=== PATIENT | female | born 1990 | race Two or more races ===

== ENCOUNTER 2018-12-26 01:33 | Emergency (ER) | payer OTHER ==
--- NOTE | 2018-12-26 01:58 | PDOC ---
History of Present Illness - General Chief Complaint: Pain Stated Complaint: BREASAT PAIN Time Seen by Provider: 12/26/18 01:53 - History of Present Illness Initial Comments: 12/26/18 03:37 28 year old no pmhx 2 weeks of bilateral breast burning PE no external massess, rash, or lesions fibrocystic changes in the breasts no tenderness to palpation Past History - Past Medical History Allergies/Adverse Reactions: Allergies Allergy/AdvReac Type Severity Reaction Status Date / Time No Known Allergies Allergy Verified 12/26/18 01:57 Home Medications: Ambulatory Orders NK [No Known Home Medication] 12/26/18 *DC/Admit/Observation/Transfer Diagnosis at time of Disposition: Breast pain - Discharge Dispostion Disposition: HOME Condition at time of disposition: Stable Decision to Admit order: No - Referrals Referrals: Herlinda Elizabeth MD [Primary Care Provider] - - Patient Instructions Printed Discharge Instructions: DI for Breast Pain (Mastalgia) Additional Instructions: You were seen in the ED for breast pain. Your evaluation and workup here was unremarkable Please follow up with your Primary Care within 1 week for further care. Return to the ED if you experience chest pain, fevers, redness or rashes - Post Discharge Activity Forms/Work/School Notes: Back to Work
[2018-12-26 02:09] VITALS: BP 143/92; PULSE 89; TEMP 98.1; BMI 30.9
--- NOTE | 2018-12-26 03:54 | PDOC ---
Attending Attestation - Resident Resident Name: Shauna Dick - ED Attending Attestation I have performed the following: I have examined & evaluated the patient, The case was reviewed & discussed with the resident, I agree w/resident's findings & plan, Exceptions are as noted - HPI HPI: 12/26/18 03:52 28 F with no PMH presents to ED with bilateral breast pain. Pt states that over the past 2 weeks, she has had intermittent episodes of bilateral breast pain. Pt reports pain in the lower portion of both breasts. Denies redness/swelling. Denies drainage. Denies any tenderness. LMP was today. Denies CP/SOB. Pt currently denies any pain. - Physicial Exam PE: 12/26/18 03:53 "GENERAL: Awake, alert, and fully oriented, in no acute distress. HEAD: No signs of trauma EYES: PERRLA, EOMI, sclera anicteric, conjunctiva clear ENT: Auricles normal inspection, hearing grossly normal, nares patent, oropharynx clear without exudates. Moist mucosa NECK: Nontender, no stepoffs, Normal ROM, supple, no lymphadenopathy, JVD, or masses LUNGS: Breath sounds equal, clear to auscultation bilaterally. No wheezes, and no crackles HEART: Regular rate and rhythm, normal S1 and S2, no murmurs, rubs or gallops ABDOMEN: Soft, nontender, normoactive bowel sounds. No guarding, no rebound. No masses EXTREMITIES: Normal range of motion, no edema. No clubbing or cyanosis. No cords, erythema, or tenderness NEUROLOGICAL: Cranial nerves II through XII intact. 5/5 strength and sensation in all extremities, Normal speech, normal gait, normal cerebellar function SKIN: Warm, Dry, normal turgor, no rashes or lesions noted. - Medical Decision Making 12/26/18 03:53 28 F with intermittent bilateral breast pain. Currently asymptomatic. Normal breast exam. - UPT - F/u studio artist Pt is well appearing, with normal vitals. Clinically stable for DC at this time. I discussed the physical exam findings, ancillary test results and final diagnoses with the patient. I answered all of the patient's questions. The patient was satisfied with the care received and felt comfortable with the discharge plan and treatment plan. The patient agrees to follow up with the primary care physician within 24-72 hours.
--- NOTE | 2018-12-26 13:59 | EKG ---
Test Reason : Blood Pressure : / mmHG Vent. Rate : 083 BPM Atrial Rate : 083 BPM P-R Int : 160 ms QRS Dur : 084 ms QT Int : 362 ms P-R-T Axes : 053 049 028 degrees QTc Int : 425 ms NORMAL SINUS RHYTHM NORMAL ECG NO PREVIOUS ECGS AVAILABLE Confirmed by SMILEY HARDIN MD ([id number]) on 12/26/2018 1:58:42 PM Referred By: Confirmed By:SMILEY HARDIN MD
== END 2018-12-26 05:45 | disposition home or self-care (01) ==
LOC: JER 01:33
DX: N64.4 Mastodynia (principal)
CPT/HCPCS: 84703; 93005; 93010; 99282-25

== ENCOUNTER 2019-05-18 16:03 | Emergency (ER) | payer OTHER ==
[2019-05-18 16:24] VITALS: BP 121/83; PULSE 99; TEMP 98; BMI 31.7
[2019-05-18] MEDS ORDERED: CEPHALEXIN MONOHYDRATE 500 MG CAPSULE (UD) PO ONE (18:52)
--- NOTE | 2019-05-18 18:53 | PDOC ---
History of Present Illness - General Chief Complaint: Wound Stated Complaint: LT PINKY SWOLLEN Time Seen by Provider: 05/18/19 17:38 History Source: Patient Exam Limitations: No Limitations Past History - Travel Traveled outside of the country in the last 30 days: No Close contact w/someone who was outside of country & ill: No - Past Medical History Allergies/Adverse Reactions: Allergies Allergy/AdvReac Type Severity Reaction Status Date / Time No Known Allergies Allergy Verified 05/18/19 16:24 Home Medications: Ambulatory Orders Cephalexin Monohydrate [Keflex -] 500 mg PO BID #14 capsule 05/18/19 COPD: No - Reproductive History Therapeutic (s) & number: No - Immunization History Immunization Up to Date: Yes - Psycho Social/Smoking Cessation Hx Smoking History: Never smoked Have you smoked in the past 12 months: No Information on smoking cessation initiated: No Hx Alcohol Use: No Drug/Substance Use Hx: No Review of Systems - Review of Systems Able to Perform ROS?: Yes Comments:: 05/18/19 19:59 CONSTITUTIONAL: Absent: fever, chills, diaphoresis, generalized weakness, malaise, loss of raeann etite MUSCULOSKELETAL: Absent: myalgia, arthralgia, joint swelling SKIN: Present: Left hand pain and swelling absent: rash, itching, pallor NEUROLOGIC: Absent: headache, focal weakness or paresthesias, dizziness, unsteady gait, seizure, mental status changes, bladder or bowel incontinence PSYCHIATRIC: Absent: anxiety, depression, suicidal or homicidal ideation, hallucinations. Is the patient limited Amharic proficient: No *Physical Exam - Vital Signs Last Vital Signs Temp Pulse Resp BP Pulse Ox 98.0 F 99 H 18 121/83 100 05/18/19 16:20 05/18/19 16:20 05/18/19 16:20 05/18/19 16:20 05/18/19 16:20 - Physical Exam 05/18/19 19:59 GENERAL: The patient is awake, alert, and fully oriented, in no acute distress. HEAD: Normal with no signs of trauma. EYES: Pupils equal, round and reactive to light, extraocular movements intact, sclera anicteric, conjunctiva clear. EXTREMITIES: Normal range of motion, no edema. NEUROLOGICAL: Normal speech, normal gait. PSYCH: Normal mood, normal affect. SKIN: Fluctuance present at the lateral aspect of the left pinky nail. Warm, Dry, normal turgor, no rashes or lesions noted. Procedures - Incision and Drainage I&D Site: Left: Paronychia (5th finger) Betadine cleansed: Yes Blade Size: 18-gauge needle Attempts: 1 Dressing: Yes Medical Decision Making - Medical Decision Making 05/18/19 20:00 The patient is a 29-year-old female no past medical history who presents the ER with 5 days of left pinky pain. She states it is gotten swollen over that time and it is tender to touch. She notes that she bites her nails. Denies numbness and tingling, weakness to the affected extremity, overlying redness to the finger. A/P: Paronychia On exam patient with a fluctuance to the lateral aspect of the left fifth finger at the nail bed. The paronychia was soaked with warm water and Betadine. Topical benzocaine placed Drained after using an 18-gauge needle. Patient placed on Keflex. Discharge home with supportive therapy and wound care follow-up. I discussed the physical exam findings, ancillary test results and final diagnoses with the patient. I answered all of the patient's questions. The patient was satisfied with the care received and felt comfortable with the discharge plan and treatment plan. The Patient agrees to follow up with the primary care physician/specialist within 24-72 hours. Return precautions were given. Discharge - Discharge Information Problems reviewed: Yes Clinical Impression/Diagnosis: Paronychia Condition: Stable Disposition: HOME - Admission No - Additional Discharge Information Prescriptions: Cephalexin Monohydrate [Keflex -] 500 mg PO BID #14 capsule - Follow up/Referral Referrals: Barron Cutler MD [Staff Physician] - - Patient Discharge Instructions Patient Printed Discharge Instructions: DI for Paronychia Additional Instructions: You have a paronychia or an infection near the nailbed. It was drained today. Please continue to do warm water soaks 4-5 times a day to keep the skin soft and to help the infection drain. Take Keflex twice a day for 1 week. This is an antibiotic to treat the infection. Follow-up with your primary care doctor in 1 week. Should the paronychia return after taking the antibiotics, return to the ER to have it drained again. Return sooner if you have increasing pain in the finger, swelling to the finger, numbness and tingling or if you have any changes in your symptoms. - Post Discharge Activity Work/Back to School Note: Back to Work
[2019-05-18] MEDS ORDERED: CEPHALEXIN MONOHYDRATE 500 MG CAPSULE (UD) ONE (18:55)
== END 2019-05-18 18:58 | disposition home or self-care (01) ==
LOC: JERFT 16:03
PROC: 0J9K0ZZ Drainage of Left Hand Subcutaneous Tissue and Fascia, Open Approach (ICD-10-PCS; principal; 2019-05-18)
DX: L03.012 Cellulitis of left finger (principal)
CPT/HCPCS: 10060; 99283-25

== ENCOUNTER 2024-09-24 16:32 | Emergency (ER) | payer OTHER ==
[2024-09-24 16:38] VITALS: BP 129/92; PULSE 87; RESP 18; TEMP 98.9; BMI 33.9
== END 2024-09-24 18:55 | disposition home or self-care (01) ==
LOC: JERFT 16:32
DX: R20.2 Paresthesia of skin (principal)
CPT/HCPCS: 72040-TC; 99283-25